=== PATIENT | female | born 1985 | race Caucasian/White ===

== ENCOUNTER → 2018-03-30 18:11 | Outpatient (REF) | payer MEDICAID, SELFPAY ==
--- NOTE | 2018-03-30 16:00 | PAPFT_PTH ---
PATIENT: Bessy Solorio LOC: [facility] U#:[id number] AGE/SX: 39/F ROOM: RE03/30/[address]: Joseline Turner CNM : 1985 BED: DIS: SPEC #: [id number] RECD: 03/30/18 17:57 STATUS: PAPITO SANTIAGO #: [id number] OMAR: 03/30/18 16:[address]: Joseline Turner DEPT: [facility] Cytology RECD BY: Kristi Wade ENTERED: 04/16/18 16:57 SP TYPE: PAPFT OTHR DR: Gertrudis Mascorro APRN Tissues: 1 - CX/ENDOCX FOR PAP SMEARS Procedures: PAP THIN PREP/UVM Screening HPV DNA PROBE
== END ==
LOC: LBN 18:11
PROVIDERS: Visit Provider Advanced Practice Midwife
DX: Z12.4 Encounter for screening for malignant neoplasm of cervix (principal); Z11.51 Encounter for screening for human papillomavirus (HPV)
CPT/HCPCS: 88142; 87624

== ENCOUNTER 2018-06-16 00:30 | Emergency (ER) | payer MEDICAID, SELFPAY ==
[2018-06-16 00:33] VITALS: BP 132/92; PULSE 80; RESP 16; TEMP 36.4
--- NOTE | 2018-06-16 00:50 | W.ED.GENAD ---
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 Return to ED for fever, vomiting, worsening pain, vaginal bleeding. Referrals: [facility] [Provider Group] Medical Decision Making Patient is 21 weeks with lower left abdominal/pelvic pain which she has had previously. However this is more intense and cramping in nature. She is also had decreased movement and came in. heart rates are found to be in the 140 range. Abdominal exam itself is unremarkable. Pelvic exam deferred as she reports no bleeding or discharge. IV is established. Fluid is started. Labs and urine obtained. Urinalysis is contaminated with epithelial cells and only 5-10 whites and she has no urinary symptoms so we will defer treatment. CBC and chemistries are unremarkable. White count is minimally elevated. Patient has increased movement and decrease discomfort after a liter of saline. Patient can be discharged to contact and follow-up with OB in the morning. Did speak to OB on-call, Dr. Salinas, after evaluating the patient in triage. Because patient was under 24 weeks, she did not want her evaluated in labor and delivery. Lab Data Lab results reviewed: Yes I reviewed the patient's lab results. HPI General Mode of arrival: ambulatory. Date/Time Provider Initiated Documentation: 06/16/18 00:38. Limitations to Documentation: no limitations. Information obtained by: patient and RN/MD. HPI Narrative: Patient presents to ED with left lower abdominal/pelvic pain. Patient is 21 weeks . She has had this pain on and off throughout her . Today it has been worse. She has had decreased movement. She has no fever, back pain, nausea, vomiting, diarrhea, vaginal bleeding, vaginal discharge or urinary symptoms. She did speak to the OB physician manager of transportation and was referred into the ED. Related Data Home Medications Medication Instructions Recorded Confirmed PNV cmb#95-ferrous fumarate-FA 1 ea PO DAILY AM 03/10/18 06/16/18 [] lactobacillus rhamnosus R0011 20 1 tab PO DAILY cap 05/11/18 06/16/18 billion cell capsule omega-3 fatty acids 1,000 mg 1,000 mg PO DAILY 05/11/18 06/16/18 capsule Allergies Allergy/AdvReac Type Severity Reaction Status Date / Time terbinafine HCl Allergy Intermediate Hives Unverified 06/16/18 00:37 [From Lamisil] amoxicillin trihydrate Allergy Unverified 06/16/18 00:37 [From Augmentin] potassium clavulanate Allergy Unverified 06/16/18 00:37 [From Augmentin] clindamycin AdvReac Mild rash Unverified 06/16/18 00:37 General 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 VARUN: 4 Review of Systems Constitutional Denies chills, Denies fever(s), Denies headache(s) and Denies weakness ENT Denies headache(s) Cardiovascular Denies chest pain, Denies lightheadedness, Denies palpitations and Denies dyspnea Respiratory Denies cough and Denies dyspnea Gastrointestinal Reports abdominal pain, Denies diarrhea, Denies nausea and Denies vomiting Genitourinary Denies abnormal vaginal bleeding, Denies hematuria, Denies dysuria, Reports pelvic pain and Denies vaginal discharge Musculoskeletal Denies back pain and Denies numbness Integumentary/Breasts Denies erythema and Denies rash Neurologic Denies headache(s), Denies numbness and Denies weakness Endocrine Denies palpitations PFSH Family History Father Myocardial infarction Mother Leukemia Social History adopted: No foster care: No number of children: 0 current occupational status: employed pets and animals: Yes pets and animals: cat(s) and dog(s) well-balanced diet: daily or most days Smoking/Tobacco Use Status: Never second hand exposure: No substance use type: does not use special abbie needs: No Surgical History Hx of augmentation mammoplasty (Acute) Exam Const General: cooperative and comfortable Orientation: alert and oriented x3 HENMT Head: normocephalic and atraumatic Mouth: moist mucous membranes Resp Effort & Inspection: normal respiratory effort Auscultation: clear to auscultation bilaterally Cardio Rate: regular rate Rhythm: regular rhythm Heart Sounds: S1 normal and S2 normal GI Inspection: other (gravid) Palpation: not firm, no guarding and tender (minimal tender left suprapubic area) Other: uterus palpable just above umbilicus Skin General skin exam: no rashes or lesions noted Neuro General: alert, oriented x3, no focal motor deficits and CN's II-XI intact bilaterally Course Vital Signs Temperature 97.5 F L 06/16/18 00:33 Pulse 80 06/16/18 00:33 Respiratory Rate 16 06/16/18 00:33 Blood Pressure 132/92 H 06/16/18 00:33 Temperature 97.5 F L 06/16/18 00:33 Temperature Source Skin 06/16/18 00:33 Pulse 80 06/16/18 00:33 Respiratory Rate 16 06/16/18 00:33 Respiratory Effort Non-Labored 06/16/18 00:36 Blood Pressure 132/92 H 06/16/18 00:33 Oxygen Delivery Method Room Air 06/16/18 00:33 Oxygen Flow Rate 0 06/16/18 00:33 Pain Level 8 06/16/18 00:38
[2018-06-16 01:12] LABS: Bilirubin Negative (Negative); Blood Negative (Negative); Clarity Sl Cloudy; Glucose Negative (Negative); Ketones Negative (Negative); Leukocyte Esterase Large (Negative); Nitrite Negative (Negative); Urobilinogen 0.2 EU/dL (Up TO 0.2)
[2018-06-16 01:19] LABS: Bacteria Few HPF (Negative); Epithelial Cells Many HPF (Negative)
[2018-06-16 01:20] LABS: C & S Indicated? No/Sq. Contamination; Casts Negative LPF (Negative); Crystals Negative HPF (Negative); Mucus Negative (Negative); RBC Negative (0-2)
[2018-06-16 01:52] LABS: Abs Immature Grans 0.05 k/cumm (0.0-0.09); Absolute Basophil Count 0.05 k/cumm (0.0-0.2); Absolute Eosinophil Count 0.09 k/cumm (0.0-0.7); Absolute Lymphocyte Count 2.99 k/cumm (1.2-3.4); Absolute Monocyte Count 0.96 k/cumm (0.11-0.7); Absolute Neutrophil Count 7.29 k/cumm (1.2-6.7); Basophils % 0.4; Eosinophils % 0.8; HCT 34.1 % (36.0-46.0); HGB 11.8 g/dL (12.0-15.5); Immature Grans % 0.4; Lymphocytes % 26.2; Mean Corp. HGB Concentration 34.6 g/dL (32.0-36.0); Mean Corpuscular Hemoglobin 31.6 pg (27.0-33.0); Mean Corpuscular Volume 91.4 fL (80-95); Mean Platelet Volume 9.3 fL (8.0-11.0); Monocytes % 8.4; Neutrophils % 63.8; Platelet Count 245 x1000/uL (130-400); RBC 3.73 m/cumm (4.00-5.20); RBC Distribution Width 13.1 % (11.7-14.6); White Blood Cell Count 11.42 k/cumm (4.4-10.8)
[2018-06-16] MEDS: Normal Saline 1,000 ML 1000 ML IV (01:58)
[2018-06-16 01:59] LABS: Anion Gap 8.3 mmol/L (3-11); BUN 7 mg/dL (7-18); CO2 25.7 mmol/L (21.0-32.0); Calcium 8.3 mg/dL (8.5-10.1); Chloride 101 mmol/L (98-107); Glucose 90 mg/dL (70-100); Potassium 3.6 mmol/L (3.5-5.1); Sodium 135 mmol/L (136-145)
[2018-06-16 02:40] VITALS: BP 124/89; PULSE 71; RESP 16; O2SAT 99
== END 2018-06-16 03:05 | disposition home or self-care (01) ==
PROVIDERS: Emergency Provider Emergency Medicine
DX: O26.892 Other specified pregnancy related conditions, second trimester (principal); R10.32 Left lower quadrant pain; Z3A.21 21 weeks gestation of pregnancy
CPT/HCPCS: 36415; 80048; 96360; 99284; 81003; 81015; 85025

== ENCOUNTER 2018-08-02 08:03 | Outpatient (CLI) | payer MEDICAID, SELFPAY ==
[2018-08-02 08:46] LABS: Glucose,1 Hr (Glucola) 105 mg/dL (80-140)
== END 2018-08-02 08:23 ==
PROVIDERS: Visit Provider Obstetrics & Gynecology
DX: Z34.93 Encounter for supervision of normal pregnancy, unspecified, third trimester (principal)
CPT/HCPCS: 36415; 82950

== ENCOUNTER 2018-09-21 19:09 | Outpatient (REF) | payer MEDICAID, SELFPAY | END 2018-09-21 19:29 | LOC: LBN 19:09 | PROVIDERS: Visit Provider Obstetrics & Gynecology Gynecology | DX: Z34.93 Encounter for supervision of normal pregnancy, unspecified, third trimester (principal); Z36.85 Encounter for antenatal screening for Streptococcus B | CPT/HCPCS: 87081 ==

== ENCOUNTER 2018-10-11 15:38 | Inpatient (IN) | payer MEDICAID, SELFPAY ==
--- NOTE | 2018-10-11 15:46 | W.PM.HP.N ---
Date of service: 10/11/18 Time of Service: 15:46 Assessment and Plan (1) Gestational hypertension: Current visit: Yes Status: Acute 38 weeks with gestational hypertension. Will admit to labor and delivery for cervical ripening and induction of labor. Will obtain CBC, CMP, UA, and protein creatinine ratio. GBS is positive and the patient has allergies to PCN and clindamycin. Will start on Vancomycin for GBS prophylaxis. History of Present Illness Chief Complaint: Gestational hypertension Narrative: 33 year old at 38 weeks presented for routine visit. She was found to have elevated blood pressures to 147/105. She has been asymptomatic to this point. Her has been uncomplicated to this point. Review of Systems Review of Systems All systems reviewed & are unremarkable except as noted in HPI and below PFSH Social History adopted: No foster care: No number of children: 0 current occupational status: employed pets and animals: Yes pets and animals: cat(s) and dog(s) well-balanced diet: daily or most days Smoking and Tabacco status: Never second hand exposure: No substance use type: does not use special abbie needs: No What is your relationship status?: Panel score (0-1 are the most socially isolated patients): 0 Female Reproductive History Menstrual Age of Menarche: 13 Duration of menses: 3-5 days History History 4 Para Hx # Term Pregnancies 0 Multiple births Hx # Pregnancies Ectopic pregnancies AB induced Hx Number of Living Children AB spontaneous 3 Meds Home Medications Medication Instructions Recorded Confirmed Type PNV cmb#95-ferrous fumarate-FA 1 ea PO DAILY AM 03/10/18 10/11/18 History [] lactobacillus rhamnosus R0011 20 1 tab PO DAILY cap 05/11/18 10/11/18 History billion cell capsule breast pump #1 each 10/07/18 10/11/18 Rx Allergies Allergy/AdvReac Type Severity Reaction Status Date / Time terbinafine HCl Allergy Intermediate Hives Verified 10/11/18 15:03 [From Lamisil] amoxicillin trihydrate Allergy Verified 10/11/18 15:03 [From Augmentin] potassium clavulanate Allergy Verified 10/11/18 15:03 [From Augmentin] clindamycin AdvReac Mild rash Verified 10/11/18 15:03 Results Labs : 10/11/18 15:38 10/11/18 15:41
[2018-10-11 17:30] LABS: HCT 31.9 % (36.0-46.0); HGB 10.7 g/dL (12.0-15.5); Mean Corp. HGB Concentration 33.5 g/dL (32.0-36.0); Mean Corpuscular Hemoglobin 29.9 pg (27.0-33.0); Mean Corpuscular Volume 89.1 fL (80-95); Platelet Count 279 x1000/uL (130-400); RBC 3.58 m/cumm (4.00-5.20); RBC Distribution Width 13.3 % (11.7-14.6); White Blood Cell Count 13.13 k/cumm (4.4-10.8)
[2018-10-11 17:43] LABS: ALT 14 U/L (12-78); AST 17 U/L (15-37); Albumin 2.6 g/dL (3.4-5.0); Alkaline Phosphatase 234 U/L (46-116); Anion Gap 10.3 mmol/L (3-11); BUN 11 mg/dL (7-18); Bilirubin, Total 0.2 mg/dL (0.2-1.0); CO2 24.7 mmol/L (21.0-32.0); CREATININE 0.79 mg/dL (0.55-1.02); Calcium 8.7 mg/dL (8.5-10.1); Chloride 100 mmol/L (98-107); Glucose 88 mg/dL (70-100); Potassium 4.1 mmol/L (3.5-5.1); Sodium 135 mmol/L (136-145); Total Protein 7.1 g/dL (6.4-8.2); Uric Acid 4.2 mg/dL (2.6-6.0)
[2018-10-11] MEDS: Zolpidem 5 MG TAB 10 MG PO (21:34)
[2018-10-11 22:10] LABS: PROTEIN < 6.0 mg/dL
[2018-10-11 22:21] LABS: COMMENT (LAB VIEW ONLY) 54.15 mg/dL
[2018-10-12] MEDS: Lactated Ringers 1,000 ML 125 ML IV ×2 (08:25→17:39)
[2018-10-12] MEDS: Normal Saline Flush 10 ML SYR ×2 (08:28→08:29)
[2018-10-12] MEDS: VANCOMYCIN 2,000 MG in Normal Saline 500 ML 250 MG IVPB (08:56)
[2018-10-12] MEDS: diphenhydrAMINE 25 MG CAP 50 MG PO (11:03)
[2018-10-12] MEDS: Bupivacaine 0.25% Pres-Free 30 ML VIAL ×2 (14:15→14:17)
[2018-10-12] MEDS: fentaNYL 100 MCG/2 ML VIAL EP (14:16)
[2018-10-12] MEDS: Hamamelis Leaf/Glycerin 100 EACH BOX PR (21:38)
[2018-10-12] MEDS: Acetaminophen 325 MG TAB 650 MG PO (21:39)
[2018-10-12] MEDS: Docusate Sodium 100 MG CAP PO (21:39)
[2018-10-12] MEDS: Ibuprofen 600 MG TAB PO (21:39)
[2018-10-13] MEDS: Ibuprofen 600 MG TAB PO ×3 (05:05→18:06)
[2018-10-13] MEDS: Normal Saline Flush 10 ML SYR IVP (08:42)
[2018-10-13] MEDS: Acetaminophen 325 MG TAB 650 MG PO ×2 (12:53→18:05)
[2018-10-13] MEDS: Docusate Sodium 100 MG CAP PO (18:05)
--- NOTE | 2018-10-13 18:18 | W.PM.OP ---
Date of service: 10/12/18 Time of Service: 19:50 Operative Note DATE OF PROCEDURE: 10/12/18 PRE-OP DIAGNOSIS: Maternal exhaustion in labor POST-OP DIAGNOSIS: same PROCEDURE: Vacuum-assisted vaginal delivery SURGEON: Tara Saleh ESTIMATED BLOOD LOSS: 0 Patient was transported to: other (Not applicable) Patient's condition: stable Indications: 33-year old primiparous female undergoing an oxytocin induction of labor for gestational hypertension who achieved complete cervical dilatation at approximately 1748 hrs. Fetus noted to be in the vertex occiput anterior presentation at the time of the initiation of maternal expulsive efforts. Estimated weight approximately 4000 gms. Mother is pelvic anatomy and the labor progress was reassuring that there was a low risk of shoulder dystocia. Approximately 2 hours of excellent maternal expulsive efforts the vertex was visible at the introitus during a contraction. heart rate tracing was category 1. At approximately 2 hours of pushing every 2 minutes I felt that the patient and the fetus would benefit from a vacuum-assisted vaginal delivery. I explained the procedure to the patient and her partner and verbal consent was obtained. Procedure Description: A Kiwi cup was placed on the sagittal suture at the edge of the posterior fontanelle with care taken to sweep the area to make sure that no maternal tissue was caught under the cup. At the next maternal expulsive effort with the next contraction the cup was inflated to the safe green zone and over the course of 1 contraction and one continuous pull the fetus was brought from the 4+ patient to complete delivery of the head in the R OT position. Upon delivery of the head the suction cup was deflated with no evidence of change in restitution of the position. At this point gentle downward traction was used to deliver the anterior shoulder followed by posterior shoulder trunk and extremities. The was then placed on his mother's test and the cord allowed to cease pulsation prior to clamping. The cord was doubly clamped and cut and cord bloods were collected. Oxytocin infusion was initiated and after a brief interval the placenta was delivered intact with a normal configuration and three-vessel cord. The patient sustained second-degree perineal laceration that was repaired using 3-0 Vicryl suture. With she tolerated the procedure well. Under male weight 3485 g (7lb 11oz) are 8/9. His parents intend to name him
[2018-10-13] MEDS: NIFEdipine-CR 30 MG TABCR PO (20:38)
[2018-10-13] MEDS: Labetalol 100 MG TAB 50 MG PO (23:37)
[2018-10-14] MEDS: Labetalol 100 MG TAB 50 MG PO ×2 (09:40→20:00)
[2018-10-14] MEDS: Acetaminophen 325 MG TAB 650 MG PO (18:35)
[2018-10-14] MEDS: Ibuprofen 600 MG TAB PO (18:36)
[2018-10-15] MEDS: Acetaminophen 325 MG TAB 650 MG PO (01:59)
[2018-10-15] MEDS: Ibuprofen 600 MG TAB PO (01:59)
[2018-10-15] MEDS: Labetalol 100 MG TAB 50 MG PO ×2 (08:37)
== END 2018-10-15 16:05 | disposition home or self-care (01) | DRG 807 ==
PROVIDERS: Obstetrics & Gynecology; Admitting Provider Advanced Practice Midwife; Visit Provider Advanced Practice Midwife
DX: Z37.0 Single live birth (principal); O13.4 Gestational [pregnancy-induced] hypertension without significant proteinuria, complicating childbirth; Z3A.38 38 weeks gestation of pregnancy; O75.81 Maternal exhaustion complicating labor and delivery; O99.824 Streptococcus B carrier state complicating childbirth; L29.8 Other pruritus; L53.9 Erythematous condition, unspecified; T36.8X5A Adverse effect of other systemic antibiotics, initial encounter; Y92.230 Patient room in hospital as the place of occurrence of the external cause; Z88.0 Allergy status to penicillin; O13.5 Gestational [pregnancy-induced] hypertension without significant proteinuria, complicating the puerperium
CPT/HCPCS: 80053; 85027; 86850; 86900; 86901; NC; 82565; 84156; 84550; J3010; J3490

== ENCOUNTER 2018-10-16 09:19 | Outpatient (CLI) | payer MEDICAID, SELFPAY | END 2018-10-16 09:39 | PROVIDERS: Visit Provider Obstetrics & Gynecology | DX: O13.3 Gestational [pregnancy-induced] hypertension without significant proteinuria, third trimester (principal); Z3A.38 38 weeks gestation of pregnancy | CPT/HCPCS: 99211 ==

== ENCOUNTER 2020-01-03 22:35 | Outpatient (REF) | payer MEDICAID, SELFPAY ==
[2020-01-03 20:57] LABS: HCG Quant, Pregnancy 153 mIU/mL (1-3)
== END 2020-01-03 22:55 ==
LOC: LBN 22:35
PROVIDERS: PCP Nurse Practitioner; Visit Provider Obstetrics & Gynecology
DX: O20.0 Threatened abortion (principal)
CPT/HCPCS: 84702

== ENCOUNTER 2020-01-10 19:46 | Outpatient (REF) | payer MEDICAID, SELFPAY | END 2020-01-10 20:06 | LOC: LBN 19:46 | PROVIDERS: PCP Nurse Practitioner; Visit Provider Obstetrics & Gynecology | DX: N92.6 Irregular menstruation, unspecified | CPT/HCPCS: 84702 ==

== ENCOUNTER 2020-01-17 10:01 | Outpatient (REF) | payer MEDICAID, SELFPAY ==
[2020-01-17 10:37] LABS: HCG Quant, Pregnancy < 1 mIU/mL (1-3)
== END 2020-01-17 10:21 ==
LOC: LBN 10:01
PROVIDERS: PCP Nurse Practitioner; Visit Provider Obstetrics & Gynecology
DX: O03.9 Complete or unspecified spontaneous abortion without complication (principal)
CPT/HCPCS: 84702

== ENCOUNTER 2020-04-10 10:38 | Outpatient (REF) | payer MEDICAID, SELFPAY ==
--- NOTE | 2020-04-10 10:30 | PAPFT_PTH ---
PATIENT: Bessy Solorio LOC: [facility] U#:[id number] AGE/SX: 34/F ROOM: RE04/10/[address]: Rere Cox DO : 1985 BED: DIS: 04/10/2020 SPEC #: [id number] RECD: 04/10/20 12:40 STATUS: PAPITO REQ #: [id number] OMAR: 04/10/20 10:[address]: Rere Cox DEPT: [facility] Cytology RECD BY: Kristi Wade ENTERED: 04/10/20 12:40 SP TYPE: PAPFT MELIA DR: Dionna Sawyer APRN Tissues: 1 - CX/ENDOCX FOR PAP SMEARS Procedures: PAP THIN PREP/UVM Screening HPV DNA PROBE Comments: [id number]
== END 2020-04-10 10:58 ==
LOC: LBN 10:38
PROVIDERS: PCP Nurse Practitioner; Visit Provider Obstetrics & Gynecology
DX: Z11.51 Encounter for screening for human papillomavirus (HPV) (principal)
CPT/HCPCS: 88142; 87624

== ENCOUNTER 2021-01-30 09:07 | Emergency (ER) | payer MEDICAID, SELFPAY ==
[2021-01-30 09:19] VITALS: BP 137/93; PULSE 97; RESP 18; TEMP 36.6; O2SAT 99
--- NOTE | 2021-01-30 09:30 | DI.RAD_ITS ---
Exam(s) XR SHOULDER LT COMPLETE 2+V EXAM: XR SHOULDER LT COMPLETE 2+V CLINICAL HISTORY: Left shoulder pain. TECHNIQUE: 2D digital imaging was performed. COMPARISON: No exams were available for comparison FINDINGS: BONES: No acute fracture is present. No bony destructive lesion is seen. JOINTS: No dislocation present. SOFT TISSUE: There are calcifications adjacent to the greater tuberosity consistent with calcific ten dinosis. IMPRESSION: Calcific tendinitis of the left shoulder. No acute abnormality. DATA REPOSITORY: RADIATION DOSE DELIVERED:
--- NOTE | 2021-01-30 09:35 | ED.GENADUL_ITS ---
Discharge Plan Disposition Patient Disposition: HOME Condition: Stable Discharge Details Clinical Impression: Calcific tendinitis of left shoulder Primary Care Provider: Dionna Sawyer ED Provider: Maria T Fortune Home Meds and New Rx's Prescriptions: No Action hydrocodone-acetaminophen 5-325 mg tablet 1 tab PO TID MDD 15mg PRN (Reason: pain) Qty: 9 RF: 0 ibuprofen 800 mg tablet 800 mg PO TID PRN (Reason: pain) Qty: 90 RF: 1 labetalol 100 mg tablet 100 mg PO BID Qty: 60 RF: 6 Discharge Instructions Instructions: Tendinitis (ED), Steroid Joint Injection (DC) Additional Instructions: Dragon supportive please keep your follow-up appointment with orthopedics as previously scheduled. Rest ice compression elevation. Anti-inflammatories or topical diclofenac she can get [id number] will be the most helpful. Follow up with primary care provider in 3-5 days. Return to ED sooner if any worsening or concerns. Increase oral fluids. Stand Alone Forms: Work Release Referrals: Woodrow Cantu MD [ [facility] STAFF PHYSICIAN] - (Calcific [facility]) Dionna Sawyer NP [Primary Care Provider] - Discharge Data Discharge Date/Time-TO BE ENTERED AT DEPARTURE: 01/30/21 12:26 Medical Decision Making 35-year-old female presents to ER with chief complaint of left shoulder pain which has really gotten worse since Thursday. Patient reports intermittent shoulder pain since doing repetitive motions for approximately a year. She describes sharp shooting pain from her anterior shoulder radiate into her left collarbone and down her arm. She also has some tenderness with palpation to her posterior scapula. No crepitus no step-off no deformity. She denies any injury. She was seen by PCP yesterday was given an IM injection of Toradol, sent home with Vicodin which has done little to help symptoms. She also reports icing it and taking ibuprofen. She is tearful upon arrival. Distal capillary refill within normal limits, no increased tenderness with pronation or supinatio n. Does have increased tenderness with abduction. Shoulder x-ray and medications ordered lidocaine patch, Percocet and Flexeril. Differential diagnosis includes tendinitis, arthritis, TECHNIQUE: 2D digital imaging was performed. COMPARISON: No exams were available for comparison FINDINGS: BONES: No acute fracture is present. No bony destructive lesion is seen. JOINTS: No dislocation present. SOFT TISSUE: There are calcifications adjacent to the greater tuberosity consistent with calcific tendinosis. IMPRESSION: Calcific tendinitis of the left shoulder. No acute abnormality. Patient returns from x-ray still moderate amount of pain. Discussed shoulder injection with Kenalog and lidocaine patient verbalized understanding and consents to the procedure. Please see procedure note above Patient does have a follow-up appoint with orthopedics on March 05 encouraged to keep this appointment. Patient given a sling prior to discharge and instructed on doing some range of motion exercises, verbalized understanding. HPI General Mode of arrival: ambulatory . Date/Time Provider Initiated Documentation: 01/30/21 09:16 . Limitations to Documentation: no limitations . Information obtained by: patient, RN notes reviewed and old records reviewed . HPI Narrative: 35-year-old female presents to ER with chief complaint of left shoulder pain which has really gotten worse since Thursday. Patient reports intermittent shoulder pain since doing repetitive motions for approximately a year. She describes sharp shooting pain from her anterior shoulder radiate into her left collarbone and down her arm. She also has some tenderness with palpation to her posterior scapula. No crepitus no step-off no deformity. She denies any injury. She was seen by PCP yesterday was given an IM injection of Toradol, sent home with Vicodin which has done little to help symptoms. She also reports icing it and taking ibuprofen. She is tearful upon arrival. Distal capillary refill within normal limits, no increased tenderness with pronation or supination. Does have increased tenderness with abduction. Related Data Home Medications Medication Instructions Recorded Confirmed labetalol 100 mg tablet 100 mg PO BID #60 tab 12/26/20 01/30/21 hydrocodone 5 mg-acetaminophen 325 1 tab PO TID PRN #9 tab MDD 15mg 01/29/21 01/30/21 mg tablet ibuprofen 800 mg tablet 800 mg PO TID PRN #90 tab 01/29/21 01/30/21 Previous Rx's Medication Instructions Recorded labetalol 100 mg tablet 100 mg PO BID #60 tab 12/26/20 hydrocodone 5 mg-acetaminophen 325 1 tab PO TID PRN #9 tab MDD 15mg 01/29/21 mg tablet ibuprofen 800 mg tablet 800 mg PO TID PRN #90 tab 01/29/21 Allergies Allergy/AdvReac Type Severity Reaction Status Date / Time terbinafine HCl Allergy Intermediate Hives Verified 01/30/21 09:23 [From Lamisil] amoxicillin trihydrate Allergy Hives Verified 01/30/21 09:25 [From Augmentin] potassium clavulanate Allergy Hives Verified 01/30/21 09:25 [From Augmentin] clindamycin AdvReac Mild rash Verified 01/30/21 09:23 vancomycin AdvReac Itching Verified 01/30/21 09:23 General Stated Complaint: Orthopedic VARUN: 3 Review of Systems All systems reviewed & are unremarkable except as noted in HPI and below Musculoskeletal Musculoskeletal: Denies back pain, Denies deformity, Reports arthralgias (left shoulder), Reports limited range of motion, Denies loss of height and Reports radiating pain into limb (sharp shooting) PFSH Medical History (Updated 01/30/21 @ 11:52 by Maria T Fortune) Chronic hypertension Gestational hypertension BP adequately controlled on labetalol 100 mg po bid. stopped 6w PP. Missed (05/30/09) D&C SAB (spontaneous ) Ventral hernia Surgical History Hx of augmentation mammoplasty (~2012) Family History Father Myocardial infarction Mother Leukemia Social History Smoking/Tobacco Use Status: Never Second Hand Exposure: No Smoking risk assessment performed?: Yes Alcohol Intake: current Alcohol Intake frequency: holidays/special occasions only Alcohol type: other Drug use: Never Substance use type: does not use Adopted: No Caregiver/Support person: No Foster care: No Household members: significant other, children and other Details: Partner - Elijah. Son - Rosalie. 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 [employer] Pets and animals: Yes Pets and animals: cat(s) and dog(s) Sexually active: Yes Do you think of yourself as: straight/heterosexual Current gender identity: female What is your relationship status?: Panel score (0-1 are the most socially isolated patients): 0 What type of physical activity do you participate in: walking Duration: 45-60 minutes/day Frequency: daily Special abbie needs: No Seatbelt use: always Helmet use: Yes Drive intox or ride w/intox vacuum truck driver: No Working smoke detector in home: Yes Fire extinguisher in home: Yes Carbon monox detector in home: No Firearms in home: Yes Firearms unloaded and locked: Yes Do you feel safe at home: Yes Do you feel safe in your relationship?: Yes Victim of physical abuse: No Victim of emotional abuse: No Victim of sexual abuse: No Female Reproductive History Menstrual Age of Menarche: 13 Duration of menses: 3-5 days History History 4 Para 1 Hx # Term Pregnancies 1 Multiple births Hx # Pregnancies Ectopic pregnancies AB induced Hx Number of Living Children 1 AB spontaneous 3 Past Pregnancies Del. Date GA/Weeks # Outcome Route Wgt Sex Labor Lgth Anesthes ia Location Prov Complic 10/12/18 38 No Successful vaginal 3486.991 g Male 7 hrs. 7 min. Tara Saleh MD 01/17/20 9 Unsuccessful Delivery Date: 10/12/18 IOL for gestational HTN. vacuum assisted vaginal delivery male named Rosalie. Tara Saleh Delivery Date: 01/17/20 SAB @ 9.1 weeks; Rere Winn Exam Narrative Exam Narrative: Constitutional: Alert and oriented x3. Appears stated age. Normal body habitus. Appears uncomfortable and tearful Head: Normocephalic, no trauma. Eyes: Pupils PERRLA, Red reflex noted, EOM's intact. Eyelids symmetrical without lesions, discharge, or swelling. Chest: RRR, Normal S1, S2, distal pulses intact. Resp: Lungs clear to auscultation bilaterally, no wheezes, rales, or rhonchi. Musculoskeletal: Normal gait, 5/5 strength to all four extremities. Some anterior pinpoint tenderness to left shoulder, posterior scapula tenderness. Di stal radial pulses intact, cap refill less than 2 seconds. Nontender with pronation and supination. Skin: No suspicious rashes or lesions. Capillary refill less than 2 sec. Neurologic: Cranial nerves II-XII intact. Alert and oriented x 3. DTR's intact. Hematologic/Lymphatic: No ecchymosis, no lymphadenopathy. Course Vital Signs Vital signs: Vital Signs Temperature 36.6 C 01/30/21 09:19 Pulse 97 H 01/30/21 09:19 Respiratory Rate 18 01/30/21 09:19 Blood Pressure 137/93 H 01/30/21 09:19 Pulse Oximetry 99 01/30/21 09:19 Temperature 36.6 C 01/30/21 09:19 Temperature Source Skin 01/30/21 09:19 Pulse 97 H 01/30/21 09:19 Respiratory Rate 18 01/30/21 09:19 Respiratory Effort Non-Labored 01/30/21 09:24 Blood Pressure 137/93 H 01/30/21 09:19 Blood Pressure Position Sitting 01/30/21 09:19 Pulse Oximetry 99 01/30/21 09:19 Oxygen Delivery Method Room Air 01/30/21 09:19 Oxygen Flow Rate 0 01/30/21 09:19 Pain Level 10 01/30/21 09:19 Procedures Joint Aspiration/Injection Joint Asp./Inject. 1: Time Out Performed: Yes Side of body: left Joint Aspirated: shoulder (No aspiration, injection only) Ultrasound Guidance: No Skin Prep: Povidone-Iodine1% Local Anesthetic: Lidocaine 1% Amount of anesthesia used (mL): 1 Needle Size Used: Other (25G) Medication Injected, if any: Triamcinolone Acetate Amount of Medication Injected (mls): 1 Patient Tolerated Procedure: well and no complications Complications: none
[2021-01-30] MEDS: Lidocaine 5% Patch 1 PATCH TP (09:49)
[2021-01-30] MEDS: Cyclobenzaprine 10 MG TAB PO (09:49)
[2021-01-30] MEDS: oxyCODONE 5 mg/Acetaminophen 325 mg TAB 1 TAB PO (09:49)
[2021-01-30] MEDS: Triamcinolone 40 MG/ML VIAL IM (12:02)
== END 2021-01-30 12:26 | disposition home or self-care (01) ==
PROVIDERS: Emergency Provider Registered Nurse Emergency; PCP Nurse Practitioner
DX: M75.32 Calcific tendinitis of left shoulder (principal)
CPT/HCPCS: 20610; 99283; 73030

== ENCOUNTER 2022-11-17 10:43 | Outpatient (CLI) | payer MEDICAID, SELFPAY ==
[2022-11-17 10:10] LABS: Abs Immature Grans 0.01 10^3/uL (0.0-0.06); Absolute Basophil Count 0.08 10^3/uL (0.0-0.2); Absolute Lymphocyte Count 2.36 10^3/uL (1.2-3.4); Absolute Monocyte Count 0.69 10^3/uL (0.1-0.8); Absolute Neutrophil Count 4.58 10^3/uL (1.2-6.7); Eosinophils % 1.3; HCT 39.5 % (36.0-46.0); HGB 13.1 g/dL (11.2-15.7); Immature Grans % 0.1; Lymphocytes % 30.2; MCH 29.2 pg (27.0-33.0); MCHC 33.2 % (32.0-36.0); MCV 88 fL (80-95); MPV 9.5 fL (8.0-11.0); Monocytes % 8.8; Neutrophils % 58.6; Platelet Count 317 10^3/uL (130-400); RBC 4.49 10^6/uL (3.93-5.22); RDW 12.6 % (11.7-14.6); RDW-SD 40.9 fL; WBC 7.82 10^3/uL (4.4-10.8)
[2022-11-17 11:17] LABS: ALT 24 U/L (14-59); AST 15 U/L (15-37); Alkaline Phosphatase 65 U/L (46-116); Anion Gap 5.3 mmol/L (3-11); BUN 17 mg/dL (7-18); Bilirubin, Total 0.4 mg/dL (0.2-1.0); CO2 27.7 mmol/L (21.0-32.0); CREATININE 1.1 mg/dL (0.55-1.02); Calcium 9.2 mg/dL (8.5-10.1); Calculated LDL 121 mg/dL (<100); Chloride 101 mmol/L (98-107); Cholesterol 218 mg/dL (<200); Estimated GFR 65.55 (mL/min/1.73m2); Glucose 85 mg/dL (74-106); HDL Cholesterol 61 mg/dL (40-60); Potassium 4.9 mmol/L (3.5-5.1); Sodium 134 mmol/L (136-145); Triglyceride 181 mg/dL (<150)
== END 2022-11-17 10:44 | disposition home or self-care (01) ==
LOC: LBO 10:44
PROVIDERS: PCP Nurse Practitioner; Visit Provider Nurse Practitioner
DX: I10 Essential (primary) hypertension (principal); Z13.220 Encounter for screening for lipoid disorders
CPT/HCPCS: 36415; 80053; 80061; 85025

== ENCOUNTER 2022-11-21 13:46 | Outpatient (REF) | payer MEDICAID, SELFPAY ==
--- NOTE | 2022-11-21 13:00 | PAPFT_PTH ---
PATIENT: Bessy Solorio LOC: [facility] U#:[id number] AGE/SX: 37/F ROOM: RE11/21/[address]: Rere Cox DO : 1985 BED: DIS: 11/21/2022 SPEC #: [id number] RECD: 11/23/22 07:43 STATUS: PAPITO REQ #: [id number] OMAR: 11/21/22 13:[address]: Rere Cox DEPT: [facility] Cytology RECD BY: Mariely Ayon ENTERED: 11/23/22 07:44 SP TYPE: PAPFT OTHR DR: Dionna Sawyer APRN Tissues: 1 - CX/ENDOCX FOR PAP SMEARS Procedures: PAP THIN PREP/UVM Screening HPV DNA PROBE Comments: [id number]
== END 2022-11-21 13:47 | disposition home or self-care (01) ==
LOC: LBN 13:46
PROVIDERS: PCP Nurse Practitioner; Visit Provider Obstetrics & Gynecology
DX: Z12.4 Encounter for screening for malignant neoplasm of cervix (principal); Z11.51 Encounter for screening for human papillomavirus (HPV)
CPT/HCPCS: 88142; 87624

== ENCOUNTER 2023-06-12 10:09 | Emergency (ER) | payer MEDICAID, SELFPAY ==
[2023-06-12] VITALS (43 sets, daily range): BP systolic 119–144; BP diastolic 79–109; PULSE 77–101; RESP 10–39; TEMP 36.6; O2SAT 93–100
--- NOTE | 2023-06-12 10:00 | RT.EKG_ITS ---
APPROVED REPORT Exam: Resting ECG Reason for Exam: chest pain Patient Location: E HR:100 bpm ECG Measurements Heart Rate 100 AXIS VA 144 P 79 QRSd 95 QRS -2 QT 334 T 28 QTc 431 Conclusion Sinus tachycardia...rate> 99
--- NOTE | 2023-06-12 10:29 | ED.GENADUL_ITS ---
Discharge Plan Disposition Patient Disposition: Home Condition: Improving Discharge Details Clinical Impression: Acute bronchitis with bronchospasm, Pleuritic chest pain Primary Care Provider: Dionna Sawyer ED Provider: Buck Hernandez Meds and New Rx's Prescriptions: New naproxen 375 mg tablet 375 mg PO TID PRN (Reason: pain) Qty: 30 0RF azithromycin [Zithromax Z-Lamont] 250 mg tablet See Rx Instructions .ROUTE .COMPLEX Qty: 6 0RF Rx Instructions: For 250 mg dose pack: take 500 mg today (day 1), then 250 mg for 4 days (days 2-5) prednisone 10 mg tablets,dose pack 10 mg PO DIRECTED Qty: 30 0RF Rx Instructions: see taper instructions take 4 tablets daily x3 days, take 3 tablets daily x3 days, take 2 tablets daily x3 days, take 1 tablet daily x3 days No Action labetalol 100 mg tablet 100 mg PO HS Qty: 90 3RF Discharge Instructions Instructions: Pleurisy (ED), Acute Bronchitis (ED), Bronchospasm (ED) Referrals: Dionna Sawyer, MEDICAL LAB TECHNOLOGIST [Primary Care Provider] - Return if symptoms worsen Discharge Data Discharge Physician: Buck Hernandez Medical Decision Making MDM: Summary: Patient presented to the emergency department with pleuritic type chest pain. She had an EKG done that shows sinus tachycardia with no acute ST-T changes. Patient had a DuoNeb done Solu-Medrol and Toradol with improvement of his symptoms. X-ray does not show any infiltrate although she is states that she was coughing. [id number] ultrasound echocardiography was done which shows normal RV no right ventricular strain no pericardial effusion normal left ventricle ejection fraction. At this time there is low probability that she has a pulmonary embolus most likely with the exam she is got bronchitis with bronchospasm and pleuritic type chest pain. Labs are unremarkable. These include troponin patient will be discharged home on a tapering dose of prednisone also azithromycin and Naprosyn for the pain. Data Review Analysis All the data on this patient was reviewed by me including laboratory and imaging studies as well as bedside studies performed by me Independent review of Studies Imaging Chest x-ray and POCUS are normal as interpreted by me and the chest x-ray read by the radiologist Lab: Labs unremarkable. Risk Stratification: -Chest pain most likely noncardiac with a low heart score. Labs are unremarkable and she had lung findings when she arrived and improved with a DuoNeb. Most like the patient has bronchitis bronchospasm with pleuritic type chest pain and will be discharged home with the meds above Differential Diagnosis: 1. Bronchitis with bronchospasm 2. Pleuritic type chest pain 3. Acute coronary syndrome 4. Pulmonary embolus 5. Pneumonia Consultants: Shared disposition: Patient understands instructions and will do accordingly spoke to her and that if she is short of breath return to emergency department for reevaluation. Impression: Medical Records Medical records reviewed: Yes I reviewed the patient's medical records. Lab Data Lab results reviewed: Yes I reviewed the patient's lab results. ECG Data Attestation: I personally reviewed and interpreted this ECG (s) as follows: Prior ECG tracings: not available for review Interpretation: I will 100 sinus tachycardia no acute ST-T changes normal axis HPI General Date/Time Provider Initiated Documentation: 06/12/23 10:29 . HPI Narrative: Patient presents to the emergency department complaining of left lower posterior rib type chest pain. States that she has had a cough for 2 weeks reports the pain is worse when she breathes and has been on there since yesterday. Denies any fever denies any chills does report cough but is not short of breath. She came because she was worried because her father had a heart attack. Denies any sweating states he is she avidly exercises and the only comorbidities that she developed hypertension after the of her child. Related Data Home Medications Medication Instructions Recorded Confirmed labetalol 100 mg tablet 100 mg PO HS #90 tabs 11/17/22 06/12/23 azithromycin 250 mg tablet See Rx Instructions PO .COMPLEX #6 06/12/23 (Zithromax Z-Lamont) tabs naproxen 375 mg tablet 375 mg PO TID PRN pain #30 tabs 06/12/23 prednisone 10 mg tablets in a dose 10 mg PO DIRECTED #30 dose pk 06/12/23 pack Previous Rx's Medication Instructions Recorded labetalol 100 mg tablet 100 mg PO HS #90 tabs 11/17/22 azithromycin 250 mg tablet See Rx Instructions PO .COMPLEX #6 06/12/23 (Zithromax Z-Lamont) tabs naproxen 375 mg tablet 375 mg PO TID PRN pain #30 tabs 06/12/23 prednisone 10 mg tablets in a dose 10 mg PO DIRECTED #30 dose pk 06/12/23 pack Allergies Allergy/AdvReac Type Severity Reaction Status Date / Time terbinafine HCl Allergy Intermediate Hives Verified 06/12/23 10:18 [From Lamisil] amoxicillin trihydrate Allergy Hives Verified 06/12/23 10:18 [From Augmentin] potassium clavulanate Allergy Hives Verified 06/12/23 10:18 [From Augmentin] clindamycin AdvReac Mild rash Verified 06/12/23 10:18 vancomycin AdvReac Itching Verified 06/12/23 10:18 General Stated Complaint: Chest Pain VARUN: 3 Review of Systems Narrative: Review of Systems: Constitutional: No fevers, chills, sweats Eye: No recent visual problems ENT: No ear pain, nasal congestion, sore throat Respiratory: No shortness of breath Cardiovascular: , palpitations, syncope Gastrointestinal: No nausea, vomiting, diarrhea Genitourinary: No hematuria Mir/Lymph: Negative for bruising tendency, swollen lymph glands Endocrine: Negative for excessive thirst, excessive hunger Musculoskeletal: No back pain, neck pain, joint pain, muscle pain, decreased range of motion Integumentary: No rash, pruritus, abrasions Neurologic: Alert & oriented X 4 Psychiatric: No anxiety, depression PFSH All Active Problems (Updated 06/12/23 @ 14:39 by Buck Hernandez MD) Pleuritic chest pain (Acute) Acute bronchitis with bronchospasm (Acute) 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 Gestational hypertension (Acute) BP adequately controlled on labetalol 100 mg po bid. stopped 6w PP. 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 Son - Rosalie. 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 - [email or web address] Pets and animals: Yes Pets and animals: cat(s) and dog(s) Sexually active: Yes Do you think of yourself as: straight/heterosexual Current gender identity: female What is your relationship status?: Panel score (0-1 are the most socially isolated patients): 0 What type of physical activity do you participate in: walking Duration: 45-60 minutes/day Frequency: daily Special abbie needs: No Seatbelt use: always Helmet use: Yes Drive intox or ride w/intox truck driver instructor: No Working smoke detector in home: Yes Fire extinguisher in home: Yes Carbon monox detector in home: No Firearms in home: Yes Firearms unloaded and locked: Yes Do you feel safe at home: Yes Do you feel safe in your relationship?: Yes Victim of physical abuse: No Victim of emotional abuse: No Victim of sexual abuse: No Female Reproductive History Menstrual Age of Menarche: 13 Duration of menses: 3-5 days History History 4 Para 1 Hx # Term Pregnancies 1 Multiple births Hx # Pregnancies Ectopic pregnancies AB induced Hx Number of Living Children 1 AB spontaneous 3 Past Pregnancies Del. Date GA/Weeks # Preg Succ Route Wgt Sex Labor Lgth Anesth esia Location [facility] 10/12/18 38 No vaginal 3486.991 g Male 7 hrs. 7 min. Tara Saleh MD 01/17/20 9 Delivery Date: 10/12/18 Last Updated by: Tara Saleh M.D. IOL for gestational HTN. vacuum assisted vaginal delivery male named Rosalie. Delivery Date: 01/17/20 Last Updated by: Rere Mccauley LPN SAB @ 9.1 weeks; Exam Narrative Exam Narrative: Exam; vitals signs as reported above normal Constitutional; In no acute distress, afebrile General: cooperative, healthy appearing, comfortable and no acute distress HEENT: Head: normal to inspection, no palpable skull fracture and normocephalic atraumatic Eyes: : appearance normal, both eyes and all related structures EOM intact bilaterally Pupils: PERRL : conjunctiva normal Direct ophthalmoscopy: normal light reflex, normal conjunctiva, normal visual acuity Ears: Normal TM, normal external canal Nose: normal no rhinorreha Neck no JVD, supple non tender Neck: normal visual inspection, full ROM and no lymphadenopathy Chest: normal inspection of the chest Respiratory : normal respiratory effort bilateral wheezing on the lower lobes pressure on the left side Cardio Rate: regular rate, rhythm: regular rhythm normal heart sounds S1 and S2 no murmurs, gallops, or rubs GI : normal to inspection, normal bowel sounds, soft, non tender, non distended, no organomegaly Back/Spine/ no CVA tenderness Thoracic/Lumbar Spine: no tenderness or deformities Skin no rashes or lesions Neuro: patient alert oriented x 4 and no meningeal signs, Cranial Nerves: CN's II-XI intact bilaterally, Cognition: normal cognition, Speech: speech normal, Gait: normal gait, Depp tendon reflexes normal 2+ muscle strength 5/5 bilaterally Extremities, no edema, full range of motion, normal strength Course Vital Signs Vital signs: Vital Signs Temperature 36.6 C 06/12/23 10:12 Pulse 77 06/12/23 10:12 Respiratory Rate 18 06/12/23 10:12 Blood Pressure 141/109 H 06/12/23 10:12 Pulse Oximetry 93 06/12/23 10:12 Temperature 36.6 C 06/12/23 10:12 Temperature Source Temporal Artery Scan 06/12/23 10:12 Pulse 77 06/12/23 10:12 Respiratory Rate 18 06/12/23 10:12 Respiratory Effort Normal 06/12/23 10:17 Blood Pressure 141/109 H 06/12/23 10:12 Blood Pressure Position Sitting 06/12/23 10:12 Pulse Oximetry 93 06/12/23 10:12 Oxygen Delivery Method Room Air 06/12/23 10:12 Oxygen Flow Rate 0 06/12/23 10:12 Pain Level 3 06/12/23 10:12
--- NOTE | 2023-06-12 10:45 | DI.RAD_ITS ---
Exam(s) XR CHEST 2V PA LATERAL EXAM: XR CHEST 2V PA LATERAL CLINICAL HISTORY: cough. TECHNIQUE: 2D digital imaging was performed. COMPARISON: CR CHEST 2 VIEWS PA,LAT from 04/25/2008 FINDINGS: 2 views: Heart size is normal. The mediastinum is not widened. Lungs are clear. No infiltrates nor pleural effusions. Bilateral breast implants now evident. IMPRESSION: No acute pulmonary findings. DATA REPOSITORY: RADIATION DOSE DELIVERED:
[2023-06-12 11:06] LABS: Abs Immature Grans 0.02 10^3/uL (0.0-0.06); Absolute Basophil Count 0.02 10^3/uL (0.0-0.2); Absolute Eosinophil Count 0.08 10^3/uL (0.0-0.7); Absolute Lymphocyte Count 1.01 10^3/uL (1.2-3.4); Absolute Monocyte Count 0.36 10^3/uL (0.1-0.8); Absolute Neutrophil Count 5.65 10^3/uL (1.2-6.7); Basophils % 0.3; Eosinophils % 1.1; HCT 42.4 % (36.0-46.0); Immature Grans % 0.3; Lymphocytes % 14.1; MCH 29.4 pg (27.0-33.0); MCV 89 fL (80-95); MPV 9.4 fL (8.0-11.0); Neutrophils % 79.2; Platelet Count 330 10^3/uL (130-400); RBC 4.77 10^6/uL (3.93-5.22); RDW 12.4 % (11.7-14.6); WBC 7.14 10^3/uL (4.4-10.8)
[2023-06-12] MEDS: Albuterol/Ipratropium 3 ML UPD VIAL UPD (11:17)
[2023-06-12] MEDS: methylPREDNISolone SUCC 125 MG VIAL IVP (11:18)
[2023-06-12] MEDS: Ketorolac 15 MG/ML VIAL IVP (11:18)
[2023-06-12 11:24] LABS: ALT 24 U/L (14-59); AST 13 U/L (15-37); Albumin 3.9 g/dL (3.4-5.0); Alkaline Phosphatase 66 U/L (46-116); Anion Gap 7.5 mmol/L (3-11); BUN 13 mg/dL (7-18); Bilirubin, Total 0.6 mg/dL (0.2-1.0); CO2 26.5 mmol/L (21.0-32.0); Calcium 9.3 mg/dL (8.5-10.1); Chloride 102 mmol/L (98-107); Estimated GFR 73.49 (mL/min/1.73m2); Glucose 111 mg/dL (74-106); Magnesium 1.9 mg/dL (1.8-2.4); Potassium 3.9 mmol/L (3.5-5.1); Sodium 136 mmol/L (136-145); Total Protein 8.2 g/dL (6.4-8.2); Troponin I < 50 ng/L (<or=60)
== END 2023-06-12 14:35 | disposition home or self-care (01) ==
PROVIDERS: Emergency Provider Emergency Medicine Emergency Medical Services; PCP Nurse Practitioner
DX: R07.81 Pleurodynia (principal); J20.9 Acute bronchitis, unspecified
CPT/HCPCS: 36415; 80053; 93005; 94640; 96374; 96375; 99284; 71046; 83735; 84484; 85025; 93010; J1885; J2930; J7620

== ENCOUNTER 2024-05-19 02:14 | Outpatient (CLI) | payer MEDICAID, SELFPAY ==
--- NOTE | 2024-05-19 07:00 | DI.MAMMO_ITS ---
Exam(s) MG MAMMO SCREENING 60 MIN DUR EXAM: MG MAMMO SCREENING 60 MIN DUR CLINICAL HISTORY: breast cancer screening,h/o augmentation mammoplasty,z12.39,z98.82 TECHNIQUE: Bilateral full field digital CC and MLO mammographic images were obtained with 3D tomosyn thesis and utilizing computer aided detection (CAD). COMPARISON: This is a baseline examination. FINDINGS: The patient has bilateral breast implants which appear unremarkable. Masses/Architectural Distortion: None seen. Microcalcifications: No suspicious pleomorphic-type are seen. Skin Thickening/Nipple Retraction: None. IMPRESSION: 1. No evidence for malignancy is seen at this time. 2. Unless there is more urgent need, screening mammography is recommended, as per [place] guidelines. BI-RADS Category 1 - Negative Breast Density - Category C - Heterogeneously dense Breast density category C or D implies that the patient has dense breast tissue. Dense breast tissue is very common and is not abnormal but dense breast tissue can make it harder to find cancer on a ma mmogram. Also, dense breast tissue may increase their breast cancer risk. This information about the result of the mammogram report was provided to the patient to raise their awareness. Use this report when you speak with the patient about their risks for breast cancer, which includes their family hist ory. At that time, you may recommend for more screening tests (Ultrasound or MRI) as they might be us eful based on their risk. A negative radiographic report should not delay biopsy if a dominant or clinically suspicious mass is present. Up to ten percent of cancers are not identified on mammography. A negative report may reinforce clinical impression. Adenosis and dense breasts may obscure an underlying neoplasm. False positive reports average 6 to 10%. Patient will receive a letter notifying them of these results.
== END 2024-05-19 02:34 ==
LOC: DI 02:14
PROVIDERS: PCP Nurse Practitioner; Visit Provider Nurse Practitioner
DX: Z12.31 Encounter for screening mammogram for malignant neoplasm of breast (principal); Z98.82 Breast implant status
CPT/HCPCS: 77063; 77067

== ENCOUNTER 2025-01-27 13:27 | Outpatient (CLI) | payer OTHER, SELFPAY ==
[2025-01-27 11:58] LABS: ALT 24 U/L (14-59); AST 17 U/L (15-37); Albumin 3.7 g/dL (3.4-5.0); Alkaline Phosphatase 62 U/L (46-116); Anion Gap 7.5 mmol/L (3-11); BUN 13 mg/dL (7-18); Bilirubin, Total 0.3 mg/dL (0.2-1.0); CO2 26.5 mmol/L (21.0-32.0); CREATININE 1.2 mg/dL (0.55-1.02); Calcium 8.6 mg/dL (8.5-10.1); Calculated LDL 139 mg/dL (<100); Chloride 103 mmol/L (98-107); Cholesterol 225 mg/dL (<200); Estimated GFR 58.32 (mL/min/1.73m2); Glucose 96 mg/dL (74-106); HDL Cholesterol 69 mg/dL (>or=50); Potassium 4.1 mmol/L (3.5-5.1); Sodium 137 mmol/L (136-145); TSH (W/Ref FT4) 3.01 uIU/mL (0.36-3.74); Total Protein 7.4 g/dL (6.4-8.2); Triglyceride 87 mg/dL (<150)
== END 2025-01-27 13:28 | disposition home or self-care (01) ==
LOC: LBO 13:28
PROVIDERS: PCP Nurse Practitioner; Visit Provider Internal Medicine
DX: I10 Essential (primary) hypertension (principal)
CPT/HCPCS: 36415; 80053; 80061; 84443

== ENCOUNTER 2025-07-04 06:38 | Emergency (ER) | payer OTHER, SELFPAY ==
[2025-07-04] VITALS (18 sets, daily range): BP systolic 126–156; BP diastolic 84–116; PULSE 86–112; RESP 13–24; TEMP 37.2; O2SAT 98
--- NOTE | 2025-07-04 06:30 | RT.EKG_ITS ---
APPROVED REPORT Exam: Resting ECG Reason for Exam: Chest Pain Patient Location: E HR:103 bpm ECG Measurements Heart Rate 103 AXIS AZ 174 P 62 QRSd 88 QRS -13 QT 337 T 54 QTc 443 Conclusion Sinus tachycardia...rate> 99 Physician: No STEMI
--- NOTE | 2025-07-04 06:45 | DI.RAD_ITS ---
Exam(s) XR CHEST 2V PA LATERAL EXAM: XR CHEST 2V PA LATERAL CLINICAL HISTORY: left breast and CP, hx of implants. TECHNIQUE: 2D digital imaging was performed. COMPARISON: Prior chest x-ray 06/12/2023 FINDINGS: 2 views: Heart size is normal. The mediastinum is not widened. Lungs are clear. No infiltrates nor pleural effusions. IMPRESSION: No acute pulmonary findings. DATA REPOSITORY: RADIATION DOSE DELIVERED:
--- NOTE | 2025-07-04 07:00 | W.ED.GENAD ---
Discharge Plan Discharge Details Chief Complaint: Chest Pain Clinical Impression: Chest discomfort Primary Care Provider: Dionna Sawyer ED Provider: Cristhian Cardoza Home Meds and New Rx's Prescriptions: No Action doxycycline hyclate 100 mg capsule 100 mg PO BID Qty: 14 0RF Rx Instructions: Avoid sun exposure. Take with meal. Take 1 pill every 12 hours x 7 days labetalol 100 mg tablet 100 mg PO HS Qty: 90 3RF Complex B-100 Tablet Extended Release 1 tab PO DAILY magnesium 200 mg tablet 200 mg PO DAILY acetylcysteine [NAC] 600 mg capsule 600 mg PO DAILY HPI General Date/Time Provider Initiated Documentation: 07/04/25 06:44. HPI Narrative: This is a 39-year-old female with a past medical history of hypertension, high cholesterol, and a strong family history of cardiac disease and myocardial infarction who presents today for chest pain. Patient states that 4 days ago Thursday she had been doing a fair bit of work and activity including hammering and reaching up high. After that she has noticed left-sided chest sensation which she describes as mild discomfort. She also noticed some mild shortness of breath and fatigue. She did have some dizziness while biking recently. She denies any pleuritic chest pain. She denies any cough. There is a question of mild exertional worsening, but she states that she just knows that it is there more with exertion and that it actually does not hurt worse. Additionally she woke up at around 3 AM this morning and had some nausea vomiting and diarrhea which was atypical for her. With this collection of symptoms she came in for further assessment. She denies any tearing or ripping sensation. Denies PE risk factors such as recent long car rides, immobilization, recent surgery, prior history of DVT or PE, family history of PE or DVT, morbid obesity, exogenous estrogen and smoking, hemoptysis, history of cancer. Of note the patient does have a history of bilateral silicone breast implants. She denies any trauma to these Related Data Home Medications Medication Instructions Recorded Confirmed labetalol 100 mg tablet 100 mg PO HS #90 tabs 11/07/23 07/04/25 doxycycline hyclate 100 mg capsule 100 mg PO BID #14 caps 05/17/24 07/04/25 Held on 07/04/25. Instructions: Prescription Finished acetylcysteine 600 mg capsule (NAC) 600 mg PO DAILY 07/04/25 07/04/25 magnesium 200 mg tablet 200 mg PO DAILY 07/04/25 07/04/25 vitamin B complex (Complex B-100 1 tab PO DAILY 07/04/25 07/04/25 tablet,extended release) Previous Rx's Medication Instructions Recorded labetalol 100 mg tablet 100 mg PO HS #90 tabs 11/07/23 doxycycline hyclate 100 mg capsule 100 mg PO BID #14 caps 05/17/24 Held on 07/04/25. Instructions: Prescription Finished Allergies Allergy/AdvReac Type Severity Reaction Status Date / Time terbinafine HCl (From Allergy Intermediate Hives Verified 07/04/25 06:58 Lamisil) amoxicillin trihydrate (From Allergy Hives Verified 07/04/25 06:58 Augmentin) potassium clavulanate (From Allergy Hives Verified 07/04/25 06:58 Augmentin) clindamycin AdvReac Mild rash Verified 07/04/25 06:58 vancomycin AdvReac Itching Verified 07/04/25 06:58 General Stated Complaint: Chest Pain VARUN: 3 Exam Narrative Exam Narrative: 1.Const: Well-nourished, Well-developed, appearing stated age 2.Eyes: PERRL, no conjunctival injection, and symmetrical lids. 3.ENT: Atraumatic external nose and ears. Moist MM. Neck: Symmetric, trachea midline, No thyromegaly. 4.CVS: +S1/S2, Peripheral pulses 2+ and equal in all extremities. Brisk capillary refill in all extremities. 5.RESP: Unlabored respiratory effort. Clear to auscultation bilaterally. No wheezes rales or rhonchi Valuation of breast demonstrates symmetric breast, no bruising or rash. No atypical components to suggest rupture of implants 6.GI: Soft, Nontender/Nondistended, No hepatosplenomegaly. No guarding or rebound. 7.MSK: Normocephalic/Atraumatic, Extremities w/o deformity or ttp No cyanosis or clubbing, Normal movement of all extremities 8.Skin: Warm, Dry. No rashes or lesions. 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 Sensation grossly intact, no focal neurologic deficits. 10.Psych: (AAO) x3. Appropriate mood and affect Course Vital Signs Vital signs: Vital Signs Pulse 112 H 07/04/25 06:42 Respiratory Rate 24 07/04/25 06:42 Blood Pressure 156/116 H 07/04/25 06:42 Pulse Oximetry 98 07/04/25 06:42 Pulse 112 H 07/04/25 06:42 Respiratory Rate 20 07/04/25 06:49 Respiratory Effort Normal, Non-Labored, Short of Breath 07/04/25 06:49 Respiratory Depth Normal 07/04/25 06:49 Respiratory Pattern Normal 07/04/25 06:49 Blood Pressure 156/116 H 07/04/25 06:42 Blood Pressure Position Sitting 07/04/25 06:42 Pulse Oximetry 98 07/04/25 06:42 Oxygen Delivery Method Room Air 07/04/25 06:42 Oxygen Flow Rate 0 07/04/25 06:42 Pain Level 5 07/04/25 06:49 Medical Decision Making This is a 39-year-old female with a past medical history of hypertension, high cholesterol, and a strong family history of cardiac disease and myocardial infarction who presents today for chest pain. Patient states that 4 days ago Thursday she had been doing a fair bit of work and activity including hammering and reaching up high. After that she has noticed left-sided chest sensation which she describes as mild discomfort. She also noticed some mild shortness of breath and fatigue. She did have some dizziness while biking recently. She denies any pleuritic chest pain. She denies any cough. There is a question of mild exertional worsening, but she states that she just knows that it is there more with exertion and that it actually does not hurt worse. Additionally she woke up at around 3 AM this morning and had some nausea vomiting and diarrhea which was atypical for her. With this collection of symptoms she came in for further assessment. She denies any tearing or ripping sensation. Denies PE risk factors such as recent long car rides, immobilization, recent surgery, prior history of DVT or PE, family history of PE or DVT, morbid obesity, exogenous estrogen and smoking, hemoptysis, history of cancer. Of note the patient does have a history of bilateral silicone breast implants. She denies any trauma to these Exam demonstrates a well-appearing female, EKG shows no STEMI. Patient demonstrates no asymmetry for the breast implants, no evidence of rupture. No bruising or rash. Differential is broad but includes musculoskeletal etiology, cardiac etiology is certainly of concern with her family history. PE less likely. We will get cardiac workup, chest x-ray, D-dimer, monitor closely and reassess patient will be signed out to my colleague Dr. Patel for follow-up on labs and imaging. 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 6w demise diagnosed by u/s at 9w. Pt requests expectant management. 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 w/[place] [facility] 3 SABs. Gestational hypertension (Acute) BP adequately controlled on labetalol 100 mg po bid. stopped 6w PP. 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 Son - Rosalie. 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 Pets and animals: Yes Pets and animals: cat(s) and dog(s) Sexually active: Yes Do you think of yourself as: straight/heterosexual Current gender identity: female What is your relationship status?: How often do you talk on the phone with friends or family?: twice per week How often do you get together with friends or relatives?: twice per week Panel score (0-1 are the most socially isolated patients): 1 What type of physical activity do you participate in: walking Duration: 45-60 minutes/day Frequency: daily Special abbie needs: No Seatbelt use: always Helmet use: Yes Drive intox or ride w/intox fork truck 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 Date GA/Weeks # Preg Succ Route Wgt Sex Labor Lgth Anesthesia Location Prov [facility] 10/12/18 38 No vaginal 3486.991 g Male 7 hrs. 7 min. Tara Saleh MD 01/17/20 9 12/23/23 9 No No Delivery Date: 10/12/18 Last Updated by: Tara Saleh M.D. IOL for gestational HTN. vacuum assisted vaginal delivery male named Rosalie. Delivery Date: 01/17/20 Last Updated by: Rere Mccauley LPN SAB @ 9.1 weeks; Delivery Date: 12/23/23 Last Updated by: Tara Saleh MD embryonic demise at 9w. CRL 6w no cardiac activity. pt desires no intervention.
[2025-07-04 07:12] LABS: BE (Venous) 0 mmol/L (-2-3); HCO3 (Venous) 26 mmol/L (23-28); O2 Sat (Venous) 52 %; TCO2 (Venous) 24 mmol/L (24-29); pCO2 (Venous) 49 mmHg (41-51); pO2 (Venous) 29 mmHg
[2025-07-04 07:14] LABS: Abs Immature Grans 0.03 10^3/uL (0.0-0.06); HCT 40.0 % (36.0-46.0); HGB 13.2 g/dL (11.2-15.7); Immature Grans % 0.3 %; MCH 29.3 pg (27.0-33.0); MCHC 33.0 % (32.0-36.0); MCV 89 fL (80-95); MPV 9.7 fL (8.0-11.0); Platelet Count 285 10^3/uL (130-400); RBC 4.50 10^6/uL (3.93-5.22); RDW 12.5 % (11.7-14.6); RDW-SD 40.8 fL; WBC 10.80 10^3/uL (4.4-10.8)
[2025-07-04 07:27] LABS: INR 1.0 (0.9-1.1); PTT Activated 24.7 sec (20.6-30.2); Prothrombin Time 10.5 sec (9.1-11.1)
[2025-07-04 07:37] LABS: ALT 26 U/L (14-59); AST 17 U/L (15-37); Albumin 4.0 g/dL (3.4-5.0); Alkaline Phosphatase 56 U/L (46-116); Anion Gap 7.0 mmol/L (3-11); BUN 14 mg/dL (7-18); Bilirubin, Total 0.7 mg/dL (0.2-1.0); CO2 27.0 mmol/L (21.0-32.0); Calcium 8.9 mg/dL (8.5-10.1); Chloride 105 mmol/L (98-107); Glucose 113 mg/dL (74-106); Potassium 4.8 mmol/L (3.5-5.1); Sodium 139 mmol/L (136-145); Total Protein 7.6 g/dL (6.4-8.2); Troponin I 4 ng/L (<or=51)
[2025-07-04 07:41] LABS: Lipase 30 U/L (<78)
[2025-07-04 07:44] LABS: D-Dimer 207 ng/mlFEU (<500)
--- NOTE | 2025-07-04 07:56 | ED.PROG_ITS ---
Date of service: 07/04/25 Time of Service: 07:56 Medical Decision Making I received signout on this 39-year-old [id number] female with left-sided chest pain for the past several days. Patient was tachycardic on arrival and a D-dimer was drawn. This was negative. Patient had reassuring comprehensive m etabolic panel with no RAHUL. Reassuring normal lipase. Unremarkable proBNP. Initial reassuring troponin. CBC lacks anemia thrombocytopenia and leukocytosis. HEART SCORE Chest pain Diagnostic Protocol: [-History/Physical/Gestalt: Slightly Suspicious (0)] [-EKG: Normal and/or unchanged from prior EKG (0)] [-AGE: less than 45 (0)] [- RISK FACTORS: 3 or more risk factors and/or known CAD (+2)] [-TROPONIN: <= normal limit (0)] - TOTAL SCORE: 2 - Risk Factors: DM, current or recent smoker, HTN, HLD, family hx of CAD, obesity - INTERPRETATION: With a total score of 3 or less, risk of major cardiac event within six weeks 1.7%, likely lower with two negative troponins. [I explained to the patient that the risk of subsequent major cardiac event within 1 month is not 0, however risk predicted to be less than 2%. Patient verbalized understanding, accepts this risk and shared and the decision for discharge with PCP follow-up for further evaluation and management. They unders tand to return to the ED immediately with any worsening symptoms, new symptoms or other concerns.] 9:45 AM I met with the patient. We explained her reassuring evaluation. Her repeat troponin was undetectable. Given the duration of time since her symptoms began there is no indication for a repeat troponin. We discussed that she should return to the ED if she felt any new or different chest pain if she developed syncope with her chest pain or if she developed any fevers. She understood her return indications and was discharged with an empiric trial of expectant outpatient management. Discharge Plan Disposition Patient Disposition: Home Discharge Details Clinical Impression: Chest discomfort Primary Care Provider: Dionna Sawyer ED Provider: Santiago Patel Home Meds and New Rx's Prescriptions: Continued doxycycline hyclate 100 mg capsule 100 mg PO BID Qty: 14 0RF Rx Instructions: Avoid sun exposure. Take with meal. Take 1 pill every 12 hours x 7 days labetalol 100 mg tablet 100 mg PO HS Qty: 90 3RF Complex B-100 Tablet Extended Release 1 tab PO DAILY magnesium 200 mg tablet 200 mg PO DAILY acetylcysteine [NAC] 600 mg capsule 600 mg PO DAILY Discharge Instructions Additional Instructions: You are seen in the emergency department for your chest pain. Your blood work showed no sign of a heart attack. As we discussed please follow-up with primary care provider. Please return to the emergency department if you develop any new or different chest pain if you pass out or if you develop any fevers. For your pain please take medications as follows: 1. Take acetaminophen (Tylenol), 1,000 mg (two 500 mg tabs) every 6 hours [2. Take ibuprofen (Advil), 400 mg every 6 hours.] Stand Alone Forms: Portal Information
--- NOTE | 2025-07-04 08:05 | DI.VRAD_ITS ---
PROCEDURE INFORMATION: Exam: XR Chest Exam date and time: 07/04/2025 7:18 AM Age: 39 years old Clinical indication: Pain; Left-sided; Left breast and cp, HX of implants TECHNIQUE: Imaging protocol: Radiologic exam of the chest. Views: 2 views. COMPARISON: CR XR CHEST 2V PA LATERAL 06/12/2023 11:52 AM FINDINGS: Lungs: Unremarkable. No consolidation. Pleural spaces: Unremarkable. No pleural effusion. No pneumothorax. Heart/Mediastinum: The cardiomediastinal silhouette is fairly stable in appearance. Bones/joints: Unremarkable. Soft tissues: Bilateral breast implants are again present. IMPRESSION: No evidence for acute pulmonary disease. Dictated and Authenticated by: Pierre Cook MD. Orderin Sony Morrow MD
[2025-07-04 08:25] LABS: Troponin I < 4 ng/L (<or=51)
[2025-07-04] MEDS: Ondansetron O.D.T. 4 MG TABEF, 3 TABS/BTL PO (08:53)
== END 2025-07-04 09:06 | disposition home or self-care (01) ==
PROVIDERS: Student in an Organized Health Care Education/Training Program; Emergency Provider Emergency Medicine; PCP Nurse Practitioner
DX: R07.9 Chest pain, unspecified (principal); R00.0 Tachycardia, unspecified
CPT/HCPCS: 99284; 99285; 36415; 00123; 80053; 82805; 83690; 93005; 71046; 83880; 84484; 85025; 85379; 85610; 85730; 93010